=== PATIENT | female | born 1985 | race Hispanic/Latino ===

== ENCOUNTER 2017-05-24 13:29 | Emergency (ER) | payer SELFPAY ==
[~2017-05-24] VITALS: Ht 175.3 cm; Wt 90.0 kg
[~2017-05-24 13:29] MED LIST: FOLIC ACID1 MG PO; FOLIC ACID5 MG OR; GLYBURIDE5 MG OR; MACRODANTIN100 MG PO; METFORMIN500 M1 OR; NOVOLIN N1 ML SC; NOVOLIN R IJ; PRE-NATAL PO; [UNRECOGNIZED DRUG - OTHER] OR
[2017-05-24 14:05] VITALS: BP 110/71
== END 2017-05-24 14:05 | disposition home or self-care (01) | DRG 605 ==
LOC: ED 13:29
DX: S80.811A Abrasion, right lower leg, initial encounter (principal); E11.9 Type 2 diabetes mellitus without complications; W54.0XXA Bitten by dog, initial encounter; Y92.007 Garden or yard of unspecified non-institutional (private) residence as the place of occurrence of the external cause

== ENCOUNTER 2017-06-27 04:03 | Emergency (ER) | payer SELFPAY ==
[~2017-06-27] VITALS: Ht 175.3 cm; Wt 86.2 kg
[2017-06-27] MEDS ORDERED: NOVOLIN N100 UNIT/1 SC (04:21)
[2017-06-27] MEDS ORDERED: NOVOLIN N100 UNIT/2 SC (04:23)
[2017-06-27] MEDS ORDERED: NOVOLIN R100 UNIT/M SC ×2 (04:27)
[2017-06-27 04:53] LABS: URINE BILIRUBIN - DIPSTICK NEGATIVE (NEGATIVE); URINE BLOOD DIPSTICK MODERATE (NEGATIVE); URINE CLARITY CLEAR; URINE COLOR YELLOW; URINE GLUCOSE - DIPSTICK NEGATIVE (NEGATIVE); URINE KETONE NEGATIVE (NEGATIVE); URINE NITRITE - DIPSTICK NEGATIVE (Negative); URINE PROTEIN - DIPSTICK NEGATIVE (NEG-TRACE); URINE SPECIFIC GRAVITY <=1.005; URINE UROBILINOGEN - DIPSTICK 0.2 E.U./dL (0.2)
[2017-06-27 04:56] LABS: URINE LEUK ESTERASE SMALL (NEGATIVE)
[2017-06-27 05:04] LABS: URINE BACTERIA FEW hpf; URINE SQUAMOUS EPITHELIAL CELL FEW EPI/hpf (0-FEW)
[2017-06-27 05:06] LABS: HEMATOCRIT 36.2 % (37.0-47.0); HEMOGLOBIN 12.5 g/dl (12.0-16.0); IMMATURE GRANULOCYTES 0.5 % (0.0-1.0); MEAN CELL VOLUME 87.7 fL CALC (80.0-100.0); MEAN CORPUSCULAR HGB 30.3 pG CALC (26.0-32.0); MEAN CORPUSCULAR HGB CONC 34.5 g/L CALC (32.0-36.0); NEUT# 2.9 thou/uL (2.00-7.15); RED BLOOD COUNT 4.13 mill/uL (4.20-5.60); RED CELL DISTRI WIDTH 12.4 % (11.5-15.5)
[2017-06-27 05:14] LABS: ALKALINE PHOSPHATASE 57 u/l (38-126); AMYLASE < 30 u/l (30-110); ANION GAP 15 (6-22 (CALC)); BILIRUBIN, TOTAL 0.4 mg/dL (0.0-1.4); BUN 12 mg/dL (7-17); BUN/CREATININE RATIO 29 (12-20 (CALC)); CALCIUM 9.3 mg/dL (8.4-10.2); CARBON DIOXIDE 24 mmol/l (22-30); CHLORIDE 105 mmol/l (95-108); CREATININE 0.4 mg/dL (0.5-1.0); GFR > 60 ML/MIN (>=60 (CALC)); GFR FOR AFR.AMER. > 60 ML/MIN (>=60 (CALC)); GLUCOSE 120 mg/dL (65-105); LIPASE 81 u/l (23-300); POTASSIUM 4.1 mmol/l (3.5-5.1); SGOT/AST 18 u/l (14-36); SGPT/ALT 34 u/l (9-52); SODIUM 141 mmol/l (137-146); TOTAL PROTEIN 7.1 g/dL (6.3-8.2)
[2017-06-27] MEDS ORDERED: NEXIUM40 M1 PO (06:57)
[2017-06-27] MEDS ORDERED: MACROBID100 MG PO (06:57)
[2017-06-27 07:10] VITALS: BP 110/77
== END 2017-06-27 07:10 | disposition home or self-care (01) | DRG 392 ==
LOC: ED 04:03
DX: K21.9 Gastro-esophageal reflux disease without esophagitis (principal); N39.0 Urinary tract infection, site not specified; E11.9 Type 2 diabetes mellitus without complications; Z79.4 Long term (current) use of insulin
CPT/HCPCS: Q9967

== ENCOUNTER 2017-06-29 23:56 | Emergency (ER) | payer SELFPAY ==
[~2017-06-29] VITALS: Ht 175.3 cm; Wt 90.0 kg
[~2017-06-29 23:56] MED LIST changes: +MACROBID100 MG PO; +NEXIUM40 M1 PO; +NOVOLIN N100 UNIT/1 SC; +NOVOLIN N100 UNIT/2 SC; +NOVOLIN R100 UNIT/M SC
[2017-06-30 00:51] VITALS: BP 135/88
== END 2017-06-30 00:32 | disposition left against medical advice (07) | DRG 392 ==
LOC: ED 23:56
DX: R10.31 Right lower quadrant pain (principal); E11.9 Type 2 diabetes mellitus without complications; R10.13 Epigastric pain; Z91.19 Patient's noncompliance with other medical treatment and regimen

== ENCOUNTER 2019-03-11 21:35 | Emergency (ER) | payer OTHER ==
[~2019-03-11] VITALS: Ht 175.3 cm; Wt 81.4 kg
[2019-03-11 22:50] LABS: HEMATOCRIT 36.5 % (37.0-47.0); HEMOGLOBIN 12.4 g/dl (12.0-16.0); IMMATURE GRANULOCYTES 0.6 % (0.0-5.0); MEAN CELL VOLUME 88.8 fL CALC (80.0-100.0); MEAN CORPUSCULAR HGB 30.2 pG CALC (26.0-32.0); NEUT# 5.05 thou/uL (2.00-7.15); RED BLOOD COUNT 4.11 mill/uL (4.20-5.60); RED CELL DISTRI WIDTH 12.3 % (11.5-15.5)
[2019-03-11 22:59] LABS: ALBUMIN 3.7 g/dL (3.2-5.0); ALKALINE PHOSPHATASE 56 u/l (38-126); ANION GAP 15 (6-22 (CALC)); BILIRUBIN, TOTAL 0.3 mg/dL (0.0-1.4); BUN 11 mg/dL (7-17); BUN/CREATININE RATIO 28 (12-20 (CALC)); CARBON DIOXIDE 23 mmol/l (22-30); CHLORIDE 103 mmol/l (95-108); CREATININE 0.4 mg/dL (0.5-1.0); GFR > 60 ML/MIN (>=60 (CALC)); GFR FOR AFR.AMER. > 60 ML/MIN (>=60 (CALC)); SGOT/AST 17 u/l (14-36); SODIUM 136 mmol/l (137-146); TOTAL PROTEIN 6.4 g/dL (6.3-8.2)
[2019-03-12 02:46] LABS: HEMATOCRIT 29.4 % (37.0-47.0); HEMOGLOBIN 9.9 g/dl (12.0-16.0)
[2019-03-12 03:45] VITALS: BP 101/61
== END 2019-03-12 03:45 | disposition short-term general hospital (02) ==
LOC: ED 21:35
PROVIDERS: Emergency Medicine
DX: O03.9 Complete or unspecified spontaneous abortion without complication (principal); E11.9 Type 2 diabetes mellitus without complications

== ENCOUNTER 2023-01-03 07:20 | Day surgery (SDC) | payer OTHER ==
[~2023-01-03] VITALS: Ht 175.3 cm; Wt 88.5 kg
[~2023-01-03 07:20] MED LIST changes: +LOPID600 MG PO; +METFORMIN HCL1000 MG PO; +NOVOLIN 70/30 INNLT SC; +OMEPRAZOLE20 MG PO; +PRAVASTATIN SOD10 MG PO; +TRULICITY0.75 MG/0.
[2023-01-03] MEDS ORDERED: HUMULIN N100 UNIT/M IJ ×2 (07:37→07:38)
[2023-01-03 09:55] VITALS: BP 99/70
== END 2023-01-03 09:20 | disposition home or self-care (01) ==
LOC: ORM 07:20
PROVIDERS: ATTEND Surgery
DX: K31.9 Disease of stomach and duodenum, unspecified (principal); N83.201 Unspecified ovarian cyst, right side; E11.9 Type 2 diabetes mellitus without complications; Z79.84 Long term (current) use of oral hypoglycemic drugs; Z79.4 Long term (current) use of insulin